=== PATIENT | female | born 1995 | race African-American/Black ===

== ENCOUNTER 2019-08-18 22:43 | Emergency (ER) | payer OTHER ==
--- NOTE | 2019-08-19 01:21 | ER Document Report ---
ED General - General Chief Complaint: Allergic Reaction Stated Complaint: POSSIBLE ALLERGIC REACTION Time Seen by Provider: 08/19/19 01:15 TRAVEL OUTSIDE OF THE [place] IN LAST 30 DAYS: No - HPI Notes: 23-year-old female presents with "possible allergic reaction". Patient states for the last day and a half she developed she thought was a stye in her left lower lid margin. Eyes not red, mild lower lid swelling. She used some bmdo-heh-caolrdf "stye medication". She is concerned because her eyes more red and somewhat more throbbing. No fever, chills or sweats. No visual change. Moderate intensity, gradual onset, nonradiating. Worse with rubbing. No other modifying factors, no other associated symptoms, no other provocative or palliative factors. - Related Data Allergies/Adverse Reactions: No Known Allergies Allergy (Unverified 08/18/19 23:55) Past Medical History - Social History Smoking Status: Never Smoker Chew tobacco use (# tins/day): No Frequency of alcohol use: None Family History: Reviewed & Not Pertinent Patient has suicidal ideation: No Patient has homicidal ideation: No - Medical History Medical History: Negative - Past Medical History Cardiac Medical History: Reports: None Review of Systems - Review of Systems Notes: Review of systems as in the history of present illness, otherwise negative x 10 systems. Physical Exam - Vital signs Vitals: Temp Pulse Resp BP Pulse Ox 98.2 F 76 16 113/69 100 08/18/19 22:48 08/18/19 22:48 08/18/19 22:48 08/18/19 22:48 08/18/19 22:48 - Notes Notes: General: Well devloped, no acute distress. HEENT: Normocephalic, atraumatic. Pupils equal round reactive to light. Mucosa moist. No JVD. Palpebral conjunctival injection in the lower lid, suggestion of early stye in the left lower lid margin Chest: No trauma, normal excursion. Respiratory: Good air exchange, normal excursion. Cardiac: Regular rhythm Abdomen: Soft, benign. Nondistended. Back: No asymmetry or gross abnormality. Motor: Grossly normal power and tone. Neurologic: Alert, nonfocal. Vascular: Well perfused Skin: No petechiae or purpura Course - Re-evaluation Re-evalutation: 08/19/19 01:18 Well-appearing female with conjunctivitis versus early stye. Will treat with erythromycin ointment, patient follow-up. She is advised to discontinue her cgav-bcp-fgewyev "stye eyedrops". 08/19/19 01:19 - Vital Signs Vital signs: Temp Pulse Resp BP Pulse Ox 98.2 F 76 16 113/69 100 08/18/19 22:48 08/18/19 22:48 08/18/19 22:48 08/18/19 22:48 08/18/19 22:48 Discharge - Discharge Clinical Impression: Conjunctivitis Qualifiers: Conjunctivitis type: acute Acute conjunctivitis type: bacterial Laterality: left Qualified Code(s): H10.32 - Unspecified acute conjunctivitis, left eye Disposition: HOME, SELF-CARE Instructions: Conjunctivitis ([facility]) Prescriptions: Erythromycin Base [Erythromycin Oph 1 Gm Oint Ud] 1 applic OS Q6 7 Days tube
[2019-08-19 01:28] VITALS: BP 108/62
== END 2019-08-19 01:28 | disposition home or self-care (01) ==
LOC: ER 22:43
DX: H10.32 Unspecified acute conjunctivitis, left eye (principal)
CPT/HCPCS: 99283

== ENCOUNTER 2019-11-01 18:26 | Emergency (ER) | payer OTHER ==
--- NOTE | 2019-11-01 18:50 | ER Document Report ---
HPI - HPI Time Seen by Provider: 11/01/19 18:38 Pain Level: 2 Context: Patient is a 23-year-old female who presents to the emergency department with a chief complaint of chest pain. Patient reports she has had chest pain for about 1 month. Patient reports she is also had a cough for that same amount of time. Patient reports at times she does cough up of brown mucus. Patient reports she does have exercise-induced asthma but has not had any issues with her asthma over the past month. Patient reports she does have a history of walking pneumonia and is concerned that she may have this at this time. Patient denies fever. Patient reports that the chest pain is located underneath the right breast and radiates around to her side. Patient reports the pain is worse with coughing, movement of her right arm and deep breathing. Patient denies a history of blood clots. Patient reports she does not have any significant past medical or surgical history. [place] without much relief. Patient concern for possible pneumonia. Patient denies abdominal pain, nausea, vomiting or diarrhea. - REPRODUCTIVE Reproductive: DENIES: : Past Medical History - General Information source: Patient - Social History Smoking Status: Never Smoker Chew tobacco use (# tins/day): No Frequency of alcohol use: None Drug Abuse: None Lives with: Family Family History: Reviewed & Not Pertinent Patient has suicidal ideation: No Patient has homicidal ideation: No - Past Medical History Cardiac Medical History: Reports: None Pulmonary Medical History: Reports: None EENT Medical History: Reports: None Neurological Medical History: Reports: None Endocrine Medical History: Reports: None Renal/ Medical History: Reports: None Malignancy Medical History: Reports: None GI Medical History: Reports: None Musculoskeletal Medical History: Reports None Skin Medical History: Reports None Psychiatric Medical History: Reports: None Traumatic Medical History: Reports: None Infectious Medical History: Reports: None Surgical Hx: Negative Vertical Provider Document - CONSTITUTIONAL Agree With Documented VS: Yes Exam Limitations: No Limitations General Appearance: No Apparent Distress - INFECTION CONTROL TRAVEL OUTSIDE OF THE [place] IN LAST 30 DAYS: No - HEENT HEENT: Atraumatic, Normal ENT Exam, Normocephalic, PERRLA - NECK Neck: Normal Inspection - RESPIRATORY Respiratory: Breath Sounds Normal, No Respiratory Distress - CARDIOVASCULAR Cardiovascular: Regular Rate, Regular Rhythm Notes: Patient does have right chest wall reproducible pain with palpation. Patient is also tender to the right anterior and right lateral rib with palpation. Patient's pain is reproduced. - GI/ABDOMEN Gastrointestinal: Abdomen Soft, Abdomen Non-Tender, Normal Bowel Sounds - MUSCULOSKELETAL/EXTREMETIES Musculoskeletal/Extremeties: FROM, Non-Tender - NEURO Level of Consciousness: Awake, Alert, Appropriate - DERM Integumentary: Warm, Dry, No Rash Course - Re-evaluation Re-evalutation: 11/01/19 19:41 Did discuss the chest x-ray results with the patient. I did inform her symptoms are consistent with a viral illness as well as a costochondritis. Since the patient has had her symptoms for 1 month with a cough I will prescribe a dose of steroids. Patient to continue anti-inflammatories such as ibuprofen, Aleve. Patient to follow-up with her primary care physician at [place]. Patient denies questions. Patient given strict return precautions. - Diagnostic Test Radiology reviewed: Reports reviewed Radiology results interpreted by me: 11/01/19 19:28 Chest X-Ray 11/01/19 18:44 IMPRESSION: REACTIVE AIRWAY DISEASE VERSUS VIRAL SYNDROME. NO CONSOLIDATION. - EKG Interpretation by Me Additional EKG results interpreted by me: 11/01/19 19:28 Patient is EKG shows a sinus rhythm with a heart rate of 75. Patient's AR inter bart 144, QT is 416 and QTc is 465. Patient has a borderline left axis deviation without ST segment changes in consecutive leads. There is no EKG for comparison. Discharge - Discharge Clinical Impression: Costochondral chest pain, Cough Condition: Stable Disposition: HOME, SELF-CARE Additional Instructions: *Today you are seen the emergency department for chest pain. We did perform an EKG which did not show any acute abnormality. We did obtain a chest x-ray which did not show a pneumonia. Your symptoms are consistent with a costochondritis. At this is an inflammation of the rib cartilages of the chest wall. This is not life-threatening. Please rest over the next few days. Please take anti- inflammatories such as ibuprofen or Aleve. I am placing you on oral steroids for the next couple of days. Please take this as prescribed only. [place] develop a fever, continued cough or if the nature of the pain changes or if he becomes severely short of breath. Costochondritis Your chest pain is coming from the rib cartilages in the chest wall. This is often caused by subtle straining of the ribs near the breastbone. The strain can occur from a mild injury, coughing or sneezing with a "cold," vigorous vomiting, or even from rib compression while sleeping. Often the pain doesn't begin until a couple of days after the strain. Persons with arthritis are especially prone to this type of pain, due to inflammation of the cartilage joints near the breast bone. But often, there is no clear reason why it happens. Rest from strenuous physical activity. This kind of chest pain is usually made worse by movement of the chest. Depending on the symptoms, we may prescribe medicine for pain and inflammation. Apply gentle warmth to the painful area for 15 minutes every hour or two. You should call contact the doctor immediately if things change. Further evaluation is needed if you develop a fever or cough, if the nature of the pain changes, or if you become short of breath. Prescriptions: Prednisone [Deltasone 10 mg Tablet] 10 mg PO ASDIR PRN #21 tablet PRN Reason: Forms: Return to Work
--- NOTE | 2019-11-01 19:09 | RADIOLOGY REPORT (SQ) ---
EXAM DESCRIPTION: CHEST 2 VIEWS COMPLETED DATE/TIME: 11/01/2019 6:58 pm REASON FOR STUDY: productive cough x 1 month COMPARISON: None. NUMBER OF VIEWS: Two view. TECHNIQUE: Frontal and lateral radiographic views of the chest acquired. LIMITATIONS: None. FINDINGS: LUNGS AND PLEURA: Mild Peribronchial cuffing. No consolidation, effusion, or pneumothorax . MEDIASTINUM AND HILAR STRUCTURES: No masses. No contour abnormalities. HEART AND VASCULAR STRUCTURES: Heart normal in size and contour. No evidence for failure. BONES: No acute findings. HARDWARE: None in the chest. OTHER: No other significant finding. IMPRESSION: REACTIVE AIRWAY DISEASE VERSUS VIRAL SYNDROME. NO CONSOLIDATION. TECHNICAL DOCUMENTATION: JOB ID: [id number] [id number] 2010 [employer]- All Rights Reserved Reading location - IP/workstation name: [email or web address]
[2019-11-01 19:51] VITALS: BP 107/70
--- NOTE | 2019-11-01 23:41 | EKG REPORT ---
SEVERITY:- OTHERWISE NORMAL ECG - SINUS RHYTHM BORDERLINE LEFT AXIS DEVIATION : Confirmed by: Yaquelin Conner MD 01-Nov-2019 23:40:35
== END 2019-11-01 19:47 | disposition home or self-care (01) ==
LOC: ER 18:26
DX: M94.0 Chondrocostal junction syndrome [Tietze] (principal); R05 Cough
CPT/HCPCS: 71046; 93005; 93010; 99283